=== PATIENT | female | born 2000 | race Caucasian/White ===

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

== ENCOUNTER → 2018-09-30 | Outpatient (CLI) | payer BC, OTHER ==
--- NOTE | 2018-09-30 16:00 | Diagnostic Imaging Report ---
CLINICAL INDICATION: Patient with thyroid nodule. COMPARISONS: Ultrasound of the thyroid gland dated 08/08/2017. FINDINGS: THYROID NODULES: There is slight decreased size of the cystic nodule in the medial upper portion of the right thyroid gland which currently measures 7 mm x 4 mm x 6 mm compared to the prior study measured at 10 mm x 5 mm x 8 mm. There is slight increased size of the heterogeneous solid nodule involving the inferior pole of the right thyroid gland which measures 10 mm x 6 mm x 7 mm compared to the prior study measured at 8 mm x 5 mm x 7 mm. This nodule demonstrates mild central Doppler flow. THYROID GLAND: Besides the thyroid nodules, the thyroid gland has normal size, shape and echogenicity. The right lobe measures 4.2 cm x 1.3 cm x 1.2 cm and the left lobe measures 3.9 cm x 1.0 cm x 1.1 cm in their three dimensions. ISTHMUS: The isthmus is unremarkable and measures 3 mm in thickness. IMPRESSION: 1: There is slight decreased size of the now 7 mm cystic nodule in the right upper portion of the right thyroid gland. 2: There is slight increased size of the now 10 mm solid nodule in the inferior portion of the right thyroid gland. 3: The remainder of the thyroid gland is unremarkable. Dictated by: Dictated on workstation # [id number]
== END ==
LOC: RAD 15:03
PROVIDERS: ATTEND Nurse Practitioner Family
DX: E04.2 Nontoxic multinodular goiter (principal)
CPT/HCPCS: 76536

== ENCOUNTER → 2019-04-07 | Outpatient (CLI) | payer BC ==
--- NOTE | 2019-04-07 11:51 | Diagnostic Imaging Report ---
PROCEDURE: US Thyroid. TECHNIQUE: Multiple Real-time grayscale images were obtained of the thyroid in various projections. INDICATION: Thyroid nodule, 6 month followup. COMPARISON: 09/30/2018. FINDINGS: The right lobe of the thyroid measures 4.7 x 1.2 x 1.5 cm and left lobe measures 3.8 x 1.0 x 1.4 cm. The isthmus is 3 mm in thickness. The previously noted hypoechoic nodule in the lower pole of the right lobe of the thyroid is again seen. This measures approximately 11 mm x 6 mm x 8 mm. This compares with 10 mm x 6 mm x 7 mm. The simple cyst in the right lobe previously seen is no longer visualized. The left lobe demonstrates homogeneous echotexture. No discrete mass is identified. IMPRESSION: Stable solid nodule in the lower pole of the right lobe of the thyroid when compared with the examination from 09/30/2018. Continued followup at 6-12 months is recommended to confirm stability. Dictated by: Dictated on workstation # [id number]
== END ==
LOC: RAD 09:29
PROVIDERS: ATTEND Family Medicine
DX: E04.1 Nontoxic single thyroid nodule (principal)
CPT/HCPCS: 76536

== ENCOUNTER → 2020-10-19 | Outpatient (CLI) | payer BC ==
--- NOTE | 2020-10-19 12:47 | Diagnostic Imaging Report ---
INDICATION: THYROID NODULE TECHNIQUE: Grayscale sonographic images of the thyroid gland. CORRELATION STUDY: 04/07/2019 and 10/30/2016 FINDINGS: RIGHT LOBE: 4.7 x 1.2 x 1.5 cm. At the inferior pole is a heterogeneous but relatively iso to slightly hypoechoic dominant solid appearing nodule. This measures 11 x 6 x 9 mm (most recently 10 x 6 x 8 mm, at baseline 7 x 5 x 6 mm). Some internal vascularity. No significant microcalcifications. LEFT LOBE: 3.8 x 1.0 x 1.4 cm. There is normal echotexture about the left lobe. Isthmus appears unremarkable. IMPRESSION: Small nodule inferior pole right lobe overall is generally stable to perhaps minimally increased in size from most recent imaging. However, there has been overall very slight interval increase in size from baseline of 4 years earlier. (Normal gland size: 4-5 x 2 x 2 cm) Dictated by: Dictated on workstation # [id number]
== END ==
LOC: RAD 12:00
PROVIDERS: ATTEND Nurse Practitioner Family
DX: E04.1 Nontoxic single thyroid nodule (principal)
CPT/HCPCS: 76536

== ENCOUNTER 2023-04-01 05:31 | Outpatient (CLI) | payer BC ==
[~2023-04-01] VITALS: Ht 157.4 cm; Wt 67.6 kg
[2023-04-01] MEDS ORDERED: SPIR50TA PO (12:14)
[2023-04-01] MEDS ORDERED: ATOR10TA66 PO (12:14)
[2023-04-01] MEDS ORDERED: NORG1TAB14 PO (12:14)
== END 2023-04-01 12:54 | disposition home or self-care (01) ==
LOC: PREOP 05:31
PROVIDERS: ATTEND Obstetrics & Gynecology
DX: Z01.818 Encounter for other preprocedural examination (principal)

== ENCOUNTER 2023-04-08 09:22 | Day surgery (SDC) | payer BC ==
[2023-04-08] VITALS (9 sets, daily range): BP systolic 120–145; BP diastolic 70–99
[~2023-04-08] VITALS: Ht 157 cm; Wt 67.6 kg
[~2023-04-08 09:22] MED LIST: ATOR10TA66 PO; NORG1TAB14 PO; SPIR50TA PO
[2023-04-08] MEDS ORDERED: LACTATED RINGERS 1,000 ML IV PRN (10:00)
--- NOTE | 2023-04-08 10:01 | History & Physical-Surgical ---
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 ENDOCERVICAL Procedure: [place] Date of Surgery: Apr 08, 2023 Allergies and Home Medications Allergies Coded Allergies: No Known Drug Allergies (Unverified , 04/01/23) Patient Home Medication List Home Medication List Reviewed: Yes Atorvastatin Calcium (Atorvastatin Calcium) 10 Mg Tablet, 10 MG PO HS, (Reported) Entered as Reported by: SRINIVASA CORRAL on 04/01/23 1214 Norgestimate-Ethinyl Estradiol (Sprintec 28 Day Tablet) 0.25 Mg-35 Mcg Tablet, 1 EACH PO DAILY, (Reported) Entered as Reported by: SRINIVASA CORRAL on 04/01/23 1214 Spironolactone (Aldactone) 50 Mg Tablet, 50 MG PO DAILY, (Reported) Entered as Reported by: SRINIVASA CORRAL on 04/01/23 1214 Past Vwqiddm-Yojzyn-Ujrkfs Hx Patient Social History Recent Hopitalizations: No Seasonal Allergies Seasonal Allergies: Yes Surgeries Yes (WISDOM TEETH) Respiratory No Cardiovascular No Neurological No Genitourinary No Gastrointestinal No Musculoskeletal No Endocrine History of Endocrine Disorders: No HEENT History of HEENT Disorders: Yes (WISDOM TEETH) Cancer Yes (ZEN III ENDOCERVICAL) Type of Treatment: Surgical Intervention Psychosocial History of Psychiatric Problem: No Integumentary History of Skin or Integumenta: No Blood Transfusions History of Blood Disorders: No Exam Vital Signs Capillary Refill : General Appearance: Alert, Oriented X3 HEENT: Atraumatic Respiratory: Clear to Auscultation Cardiovascular: Regular Rate Abdominal: Normal Bowel Sounds Extremities: No Clubbing Skin: No Rashes Neuro: Normal Gait Psych/Mental Status: Mental Status NL Assessment/Plan Assessment and Plan Diagnosis: ZEN 3 P: [facility] [place] Admission Diagnosis Admission Status: Other (Same Day Surgery) LUIS ROBERTS DO Apr 08, 2023 10:01
[2023-04-08] MEDS ORDERED: IBUP-1773 PO (10:03)
[2023-04-08] MEDS ORDERED: ACHD5005 PO (10:03)
--- NOTE | 2023-04-08 10:05 | Discharge Inst-Women's Service ---
Discharge Inst-Women's Serv Depart Medication/Instructions New, Converted or Re-Newed RX: Transmitted to Pharmacy Problems Reviewed?: Yes Consults/Follow Up Additional Follow Up: Yes Orders/Referrals Dr. Roberts in 2weeks Activity Activity: Activity as Tolerated Driving Instructions: No Driving for 1 Week NO SMOKING: NO SMOKING Nothing Inside Vagina: No Douching, No [place], No Tampons Diet Discharge Diet: No Restrictions Symptoms to Report to : Bleeding Excessive, Pain Increased, Fever Over 101 Degrees F, Vaginal Bleeding Increase, Questions/Concerns For Any Problems or Questions: Contact Your Physician LUIS ROBERTS DO Apr 08, 2023 10:05
[2023-04-08 10:06] LABS: BASOPHILS # (AUTO) 0.1 10^3/uL (0.0-0.1); BASOPHILS % (AUTO) 1 % (0-10); EOSINOPHILS # (AUTO) 0.1 10^3/uL (0.0-0.3); EOSINOPHILS % (AUTO) 1 % (0-10); HEMATOCRIT 45 % (35-52); HEMOGLOBIN 14.9 g/dL (11.5-16.0); LYMPHOCYTES # (AUTO) 1.7 10^3/uL (1.0-4.0); LYMPHOCYTES % (AUTO) 27 % (12-44); MEAN CORPUSCULAR HEMOGLOBIN 30 pg (25-34); MEAN CORPUSCULAR HGB CONC 33 g/dL (32-36); MEAN CORPUSCULAR VOLUME 91 fL (80-99); MEAN PLATELET VOLUME 9.5 fL (9.0-12.2); MONOCYTES # (AUTO) 0.5 10^3/uL (0.0-1.0); MONOCYTES % (AUTO) 8 % (0-12); NEUTROPHILS # (AUTO) 4.1 10^3/uL (1.8-7.8); NEUTROPHILS % (AUTO) 64 % (42-75); PLATELET COUNT 288 10^3/uL (130-400); WHITE BLOOD COUNT 6.4 10^3/uL (4.3-11.0)
[2023-04-08] MEDS ORDERED: KETOROLAC INJ 30 MG/ML VIAL IVP ONE (10:15)
[2023-04-08] MEDS ORDERED: HYDROcodone/ACETAMINOPHEN 5 MG/325 MG TABLET PO PRN (10:15)
[2023-04-08] MEDS ORDERED: ONDANSETRON 4 MG/2 ML (SDV) Z0FRAN IVP PRN ×2 (10:15→11:45)
[2023-04-08] MEDS ORDERED: D5 LR 1,000 ML IV SOLN 1,000 ML IV SCH (10:15)
[2023-04-08] MEDS ORDERED: LIDOCAINE 1% w/EPI 1:100,000 20 ML VIAL ONE (10:26)
[2023-04-08] MEDS ORDERED: fentaNYL INJECTION 100 MCG/2 ML VIAL ONE (10:27)
[2023-04-08] MEDS ORDERED: ONDANSETRON 4 MG/2 ML (SDV) Z0FRAN ONE (10:27)
[2023-04-08] MEDS ORDERED: proPOfol 200 MG/20 ML (DIPRIVAN) VIAL IV ONE (10:27)
[2023-04-08] MEDS ORDERED: dexAMETHasone INJ 10 MG/ML 1 ML VIAL ONE (10:27)
[2023-04-08] MEDS ORDERED: LIDOCAINE PF 2% 5 ML VIAL ONE (10:27)
[2023-04-08] MEDS ORDERED: MIDAZOLAM INJ 2 MG/2 ML VIAL ONE (10:28)
[2023-04-08] MEDS ORDERED: SEVOFLURANE (ULTANE) 15 ML INHAL SOLN ONE (11:17)
[2023-04-08] MEDS ORDERED: morphine INJ 10 MG/ML 1ML (SYR OR VIAL) IVP ONE (11:45)
[2023-04-08] MEDS ORDERED: MEPERIDINE INJ 50 MG/ML VIAL IVP ONE (11:45)
--- NOTE | 2023-04-08 13:43 | Anesthesia-General Post-Op ---
General Patient Condition Mental Status/LOC: Same as Preop Cardiovascular: Satisfactory Nausea/Vomiting: Absent Respiratory: Satisfactory Pain: Controlled Complications: Absent Post Op Complications Complications None Follow Up Care/Instructions Patient Instructions None needed. Anesthesia/Patient Condition Patient Condition Patient was seen in PACU and awake and doing well, no complaints, stable vital signs, no apparent adverse anesthesia problems. No complications reported per nursing. NIKOLAI HOLLY DO Apr 08, 2023 13:43
--- NOTE | 2023-04-08 19:49 | OPERATIVE REPORT ---
DATE OF SERVICE: 04/08/2023 PREOPERATIVE DIAGNOSIS: A 21-year-old female with ZEN 3 noted on colposcopy biopsy. POSTOPERATIVE DIAGNOSIS: A 21-year-old female with ZEN 3 noted on colposcopy biopsy. PROCEDURE: Cold knife conization. SURGEON: Luis Roberts DO ANESTHESIA: LMA general. ESTIMATED BLOOD LOSS: Minimal. URINE OUTPUT: 200 mL drained at the end of the procedure. FLUIDS: 800 mL of lactated Ringer's solution. FINDINGS: Grossly normal-appearing external female genitalia with a wide transformation zone noted at the cervix. No gross ulcerative lesions noted at the cervix. SPECIMEN SENT: Cold knife conization biopsy of the cervix. INDICATIONS FOR PROCEDURE: This 22-year-old female had a consultation in my office for conization biopsy due to finding of ZEN 3 with some endocervical involvement. I discussed with the patient proceeding with cold knife conization with hopefully preserve remainder of the cervix and fertility versus proceeding with a large LEEP procedure. The risk and benefit of both were discussed. After everything was discussed with the patient in detail, she was agreeable to proceed. Consent was obtained the preoperative area with her mother present and the patient was taken to the operating room. OPERATIVE REPORT IN DETAIL: Once in the operating room, anesthesia was found to be adequate. She was placed in dorsal lithotomy position, prepped and draped in normal sterile fashion. A timeout was performed. A weighted speculum inserted to the patient's vagina. Right angle retractor was utilized. Cervix was grasped at 12 o'clock position using a long Allis clamp. I then performed a paracervical block at 3 and 9 o'clock positions on the cervix. Care was taken to aspirate before injecting 10 mL of 0.25% Marcaine, 5 in each site are injected into the cervix. I then injected 10 more mL of 0.25% Marcaine with epinephrine into the cervix. This was in the anterior and posterior lips of the cervix to control bleeding during the conization. I then applied Lugol solution to the cervix, allowing me to identify all areas of dysplasia and then the width of the transformation zone. Once this was identified, I made a circular incision using a #10 blade knife around the transformation zone, excising it completely and then taking this deeper down the endocervical canal, but staying shallow and not taking too much of the cervical stroma in the process of doing this. After which, the vascular bed is made hemostatic using ball cautery and astringent solution. I then performed a Sturmdorf stitch of 2-0 Vicryl suture in 3 separate areas of the cervix to imbricate and control bleeding of the cervix. I also placed 2 lateral sutures using 0 Vicryl suture at 3 and 9 o'clock positions on the cervix to control postoperative bleeding, after which there was little to no bleeding noted from the cervix. Lap and sponge counts were correct at the end of the procedure. Instrument counts correct as well. Job ID: [id number] DocumentID: [id number] Dictated Date: 04/08/2023 12:36:09 Health Technical Writer Date: 04/08/2023 19:46:00 Dictated By: LUIS ROBERTS DO
== END 2023-04-08 13:00 | disposition home or self-care (01) ==
LOC: SDC 09:22
PROVIDERS: ATTEND Obstetrics & Gynecology
DX: D06.9 Carcinoma in situ of cervix, unspecified (principal)
CPT/HCPCS: 36415; 84703; 85025; 86850; 86900; 86901; 87081; 88307

== ENCOUNTER 2023-05-06 05:33 | Outpatient (CLI) | payer BC ==
[~2023-05-06] VITALS: Ht 157.5 cm; Wt 60.0 kg
[~2023-05-06 05:33] MED LIST changes: +ACHD5005 PO; +IBUP-1773 PO
== END 2023-05-06 14:53 | disposition home or self-care (01) ==
LOC: PREOP 05:33
PROVIDERS: ATTEND Obstetrics & Gynecology
DX: Z01.818 Encounter for other preprocedural examination (principal)

== ENCOUNTER 2023-05-13 06:27 | Day surgery (SDC) | payer BC ==
[~2023-05-13] VITALS: Ht 157.5 cm; Wt 60.0 kg
[2023-05-13] VITALS (8 sets, daily range): BP systolic 115–134; BP diastolic 79–86
[2023-05-13] MEDS ORDERED: LACTATED RINGERS 1,000 ML 1,000 ML IV PRN (06:45)
[2023-05-13 06:52] LABS: BASOPHILS % (AUTO) 0 % (0-10); EOSINOPHILS % (AUTO) 0 % (0-10); HEMATOCRIT 36 % (35-52); HEMOGLOBIN 12.8 g/dL (11.5-16.0); LYMPHOCYTES # (AUTO) 0.9 10^3/uL (1.0-4.0); LYMPHOCYTES % (AUTO) 8 % (12-44); MEAN CORPUSCULAR HEMOGLOBIN 32 pg (25-34); MEAN CORPUSCULAR HGB CONC 36 g/dL (32-36); MEAN CORPUSCULAR VOLUME 89 fL (80-99); MEAN PLATELET VOLUME 9.6 fL (9.0-12.2); MONOCYTES # (AUTO) 0.9 10^3/uL (0.0-1.0); MONOCYTES % (AUTO) 8 % (0-12); NEUTROPHILS # (AUTO) 9.2 10^3/uL (1.8-7.8); NEUTROPHILS % (AUTO) 83 % (42-75); PLATELET COUNT 273 10^3/uL (130-400); WHITE BLOOD COUNT 11.1 10^3/uL (4.3-11.0)
[2023-05-13] MEDS ORDERED: fentaNYL INJECTION 100 MCG/2 ML VIAL ONE (07:09)
[2023-05-13] MEDS ORDERED: MIDAZOLAM INJ 2 MG/2 ML VIAL ONE (07:09)
[2023-05-13] MEDS ORDERED: ONDANSETRON INJECTION 4 MG/2 ML (SDV) ONE (07:09)
[2023-05-13] MEDS ORDERED: dexAMETHasone INJ 10 MG/ML 1 ML VIAL ONE (07:09)
[2023-05-13] MEDS ORDERED: proPOfol INJECTION 200 MG/20 ML VIAL IV ONE (07:09)
[2023-05-13] MEDS ORDERED: LIDOCAINE PF 2% 5 ML VIAL ONE (07:09)
[2023-05-13] MEDS ORDERED: BUPIVACAINE 0.25% 30 ML VIAL ONE (07:15)
[2023-05-13] MEDS ORDERED: ONDANSETRON INJECTION 4 MG/2 ML (SDV) IVP PRN ×2 (07:15→09:00)
[2023-05-13] MEDS ORDERED: KETOROLAC INJ 30 MG/ML VIAL IVP ONE (07:15)
[2023-05-13] MEDS ORDERED: D5 LR 1,000 ML IV SOLN 1,000 ML IV SCH (07:15)
--- NOTE | 2023-05-13 07:15 | Progress Note-Pre Operative ---
Pre-Operative Progress Note Date of Available H&P: May 13, 2023 Date H&P Reviewed: May 13, 2023 Time H&P Reviewed: 07:15 History & Physical: H&P Reviewed, Patient Examed, No changes noted Pre-Operative Diagnosis: Positive lateral margins for cin3 on prior ckc LUIS ROBERTS DO May 13, 2023 07:15
--- NOTE | 2023-05-13 07:16 | Discharge Inst-Women's Service ---
Discharge Inst-Women's Serv Depart Medication/Instructions New, Converted or Re-Newed RX: Transmitted to Pharmacy Problems Reviewed?: Yes Consults/Follow Up Additional Follow Up: Yes Orders/Referrals Dr. Roberts in 2 weeks Activity Activity: Activity as Tolerated Driving Instructions: You May Drive NO SMOKING: NO SMOKING Nothing Inside Vagina: No Douching, No [place], No Tampons Diet Discharge Diet: No Restrictions Symptoms to Report to : Bleeding Excessive, Pain Increased, Fever Over 101 Degrees F, Vaginal Bleeding Increase, Questions/Concerns For Any Problems or Questions: Contact Your Physician LUIS ROBERTS DO May 13, 2023 07:16
[2023-05-13] MEDS ORDERED: ACHD5005 PO (07:18)
[2023-05-13] MEDS ORDERED: IBUP-1773 PO (07:18)
[2023-05-13] MEDS ORDERED: NS (IVPB) 100 ML 100 ML ONE (07:21)
[2023-05-13] MEDS ORDERED: VASOPRESSIN INJECTION 20 UNIT/ML VIAL ONE (07:22)
[2023-05-13] MEDS ORDERED: KETOROLAC INJ 30 MG/ML VIAL ONE (08:07)
[2023-05-13] MEDS ORDERED: SEVOFLURANE (ULTANE) 15 ML INHAL SOLN ONE (08:37)
--- NOTE | 2023-05-13 08:48 | Anesthesia-General Post-Op ---
General Patient Condition Mental Status/LOC: Same as Preop Cardiovascular: Satisfactory Nausea/Vomiting: Absent Respiratory: Satisfactory Pain: Controlled Complications: Absent Post Op Complications Complications None Follow Up Care/Instructions Patient Instructions None needed. Anesthesia/Patient Condition Patient Condition Patient is doing well, no complaints, stable vital signs, no apparent adverse anesthesia problems. No complications reported per nursing. JOHN TRINH CRNA May 13, 2023 08:48
[2023-05-13] MEDS ORDERED: morphine INJ 10 MG/ML 1ML (SYR OR VIAL) ONE (08:50)
[2023-05-13] MEDS ORDERED: NS 100 ML (IVPB) BAG INJ ONE (09:00)
[2023-05-13] MEDS ORDERED: VASOPRESSIN INJECTION 20 UNIT/ML VIAL IJ ONE (09:00)
[2023-05-13] MEDS ORDERED: morphine INJ 10 MG/ML 1ML (SYR OR VIAL) IVP ONE (09:00)
[2023-05-13] MEDS ORDERED: BUPIVACAINE 0.25% 30 ML VIAL INJ ONE (09:00)
[2023-05-13] MEDS ORDERED: HYDROcodone/ACETAMINOPHEN 5 MG/325 MG TABLET ONE (10:00)
[2023-05-13] MEDS ORDERED: HYDROcodone/ACETAMINOPHEN 5 MG/325 MG TABLET PO ONE (10:00)
--- NOTE | 2023-05-13 17:45 | OPERATIVE REPORT ---
DATE OF SERVICE: 05/13/2023 PREOPERATIVE DIAGNOSIS: A 22-year-old female with ZEN 3 extending beyond ectocervical cut margin on previous conization biopsy. POSTOPERATIVE DIAGNOSIS: A 22-year-old female with ZEN 3 extending beyond ectocervical cut margin on previous conization biopsy. PROCEDURE: Cold knife conization. SURGEON: Trey Momin DO ANESTHESIA: LMA general. ESTIMATED BLOOD LOSS: Minimal. URINE OUTPUT: A 50 mL drained at the end of the procedure. FLUIDS: A 800 mL lactated Ringer solution. FINDINGS: A normal-appearing external female genitalia and vaginal mucosa, cervix with evidence of recent prior conization biopsy of the cervix. SPECIMEN SENT: Conization biopsy of the cervix. INDICATIONS FOR PROCEDURE: This 22-year-old female was a patient who had just recently had a cold knife conization of the cervix due to ZEN 3, possible carcinoma in situ noted on colposcopy evaluation. Her endocervical margins were negative; however, she had positive ectocervical margins with ZEN 3 extending up to these margins. I discussed with the patient on her postoperative visit repeat conization biopsy. Risks of procedure discussed with the patient in detail and the preservation of cervical stroma for future childbearing was discussed. After everything was reviewed, the patient was agreeable to proceed. Consent was obtained at the preoperative area. The patient was taken to the operating room. OPERATIVE REPORT IN DETAIL: Once in the operating room, anesthesia was found to be adequate. She was placed in the dorsal lithotomy position, prepped and draped in normal sterile fashion. A timeout was performed. A weighted speculum inserted to the patient's vagina. Right angle retractor was utilized. Cervix was grasped at 12 o'clock position using a long Allis clamp. I then performed a paracervical block at 3 and 9 o'clock positions on the cervix. Care was taken to aspirate before injecting 5 mL of 0.25% Marcaine injected at each site. I then injected the cervical stroma with vasopressin concentration of 10 units in 50 mL of normal saline was used with a total of 30 mL of this concentration used. I then stained the transformation zone of the cervix using a Lugol's solution. This allows me to identify the lateral margins of the transformation zone. I then circumferentially take a biopsy using a cold knife around the transformation zone margins, staying lateral to the expected transformation zone all the way around the cervix. I then undermined this tissue using a Escobar scissors and take this as a one single specimen. There are couple portion of the specimen that do break off in the process of doing this, after which there was no active bleeding noted from the cervix itself. The ball cautery was used to cauterize the stromal openings and then this is also covered with Astryn [employer] after which there was no active bleeding noted from any of my dissection planes. All instruments were removed from the patient's vagina. The patient tolerated the procedure well and sent to recovery area in stable condition. Lap and sponge counts were correct at the end of the procedure. Instrument counts correct as well. Job ID: [id number] DocumentID: [id number] Dictated Date: 05/13/2023 09:07:09 Welding Machine Operator Arc Date: 05/13/2023 17:44:00 Dictated By: DO ROSALVA NICOLE
== END 2023-05-13 10:17 | disposition home or self-care (01) ==
LOC: SDC 06:27
PROVIDERS: ATTEND Obstetrics & Gynecology
DX: D06.1 Carcinoma in situ of exocervix (principal)
CPT/HCPCS: 36415; 84703; 85025; 86850; 86900; 86901; 87081